=== PATIENT | female | born 1945 | race Asian ===

== ENCOUNTER → 2018-05-18 | Outpatient (CLI) | payer OTHER ==
[~2018-05-18] MED LIST: ALEN70; ASPI81CH; CITA20; METO25ER; SIMV40; ZESTORETIC 20-121 E1
[2018-05-19 14:08] LABS: HPV 16 Negative (Negative); HPV 18 Negative (Negative); HPV OTHER HR TYPES Negative (Negative)
== END ==
LOC: LAB 11:11 → LAB SHORT 11:11
PROVIDERS: Nurse Practitioner Women's Health
DX: Z12.4 Encounter for screening for malignant neoplasm of cervix (principal); Z91.89 Other specified personal risk factors, not elsewhere classified
CPT/HCPCS: 87624; G0123

== ENCOUNTER 2018-06-30 11:42 | Day surgery (SDC) | payer OTHER ==
[~2018-06-30] VITALS: Ht 152.4 cm; Wt 59.8 kg
[~2018-06-30 11:42] MED LIST changes: +ALEN70 PO; +Aspirin EC81 MG PO; +CENTRUM SILVER1 EAC3 PO; +LOSARTAN POTAS100 MG PO; +METO50ER PO; +SIMV40 PO; +VITAMIN D350000 UNIT PO
== END 2018-06-30 15:30 | disposition home or self-care (01) ==
LOC: ORSCSDS 11:42
PROVIDERS: Obstetrics & Gynecology Gynecology
PROC: 0UDB8ZX Extraction of Endometrium, Via Natural or Artificial Opening Endoscopic, Diagnostic (ICD-10-PCS; principal; 2018-06-30 13:00)
DX: N85.00 Endometrial hyperplasia, unspecified (principal); I12.9 Hypertensive chronic kidney disease with stage 1 through stage 4 chronic kidney disease, or unspecified chronic kidney disease; N18.9 Chronic kidney disease, unspecified; F17.210 Nicotine dependence, cigarettes, uncomplicated; Z79.899 Other long term (current) drug therapy
CPT/HCPCS: 88305; J0690; J1100; J1885; J2250; J2405; J3010; J7120